=== PATIENT | female | born 1990 | race Caucasian/White ===

== ENCOUNTER → 2018-08-01 | Outpatient (CLI) | payer OTHER | END | disposition home or self-care (01) | LOC: LABWHC1 09:03 | PROVIDERS: ATTEND Surgery | DX: Z52.4 Kidney donor (principal) | CPT/HCPCS: 86900; 86901 ==

== ENCOUNTER → 2018-09-23 | Outpatient (CLI) | payer OTHER ==
[2018-09-23 09:49] LABS: Basophils % (A) 0 %; Eosinophils # (A) 0.3 k/uL (0-0.7); Eosinophils % (A) 4 %; HCT 37.6 % (34.0-46.0); HGB 12.5 gm/dL (11.4-16.0); Lymphocytes # (A) 2.1 k/uL (1.0-4.8); Lymphocytes % (A) 34 %; MCH 32.2 pg (25.0-35.0); MCHC 33.1 g/dL (31.0-37.0); MCV 97.3 fL (80.0-100.0); Mean Platelet Volume 8.9; Monocytes # (A) 0.3 k/uL (0-1.0); Monocytes % (A) 5 %; Neutrophils # (A) 3.5 k/uL (1.3-7.7); Neutrophils % (A) 56 %; Platelet Count 187 k/uL (150-450); RBC 3.87 m/uL (3.80-5.40); RDW 12.5 % (11.5-15.5); WBC 6.2 k/uL (3.8-10.6)
[2018-09-23 10:04] LABS: Partial Thromboplastin Time 25.6 sec (22.0-30.0); Prothrombin Time 9.9 sec (9.0-12.0)
[2018-09-23 10:07] LABS: Appearance,Urine Cloudy (Clear); Bilirubin,Urine Negative (Negative); Blood,Urine Moderate (Negative); Color,Urine Yellow; Glucose,Urine (UA) Negative (Negative); Ketones,Urine Negative (Negative); Leukocyte Esterase,Urine Small (Negative); Mucus,Urine Moderate /hpf; Nitrite,Urine Negative (Negative); Protein,Urine Trace (Negative); RBC,Urine 7 /hpf (0-5); Specific Gravity,Urine 1.023 (1.001-1.035); Squamous Epithelial Cell,Urine 22 /hpf (0-4); Urobilinogen,Urine <2.0 mg/dL (<2.0); WBC,Urine 5 /hpf (0-5)
--- NOTE | 2018-09-23 10:41 | XR ---
EXAMINATION TYPE: XR chest 2V DATE OF EXAM: 09/23/2018 COMPARISON: NONE HISTORY: Chest pain TECHNIQUE: Frontal and lateral views of the chest are obtained. FINDINGS: There is no focal air space opacity. No evidence for pneumothorax. No pleural effusion. The cardiac silhouette size is within normal limits. The osseous structures are grossly intact. IMPRESSION: 1. No acute cardiopulmonary process.
[2018-09-23 14:39] LABS: Creatinine 24 Hour,Urine 1162.8 mg/24hr (800.0-1800.0)
[2018-09-23 16:50] LABS: ALT 10 U/L (8-44); AST 15 U/L (13-35); Albumin/Globulin Ratio 2.59 (1.20-2.10); Alkaline Phosphatase 82 U/L (41-126); Calcium 9.1 mg/dL (8.7-10.3); Carbon Dioxide 22.5 mmol/L (21.6-31.8); Chloride 109 mmol/L (96-109); Cholesterol 145 mg/dL (0-200); GGT <15 U/L (0-38); Globulin 1.7 g/dL (2.1-3.7); Glucose 81 mg/dL (70-110); HCG,Quantitative Serum <2.0 mIU/mL; LDH 127 U/L (120-246); LDL Cholesterol,Calculated 84.2 mg/dL (0.0-131.0); Phosphorus 3.2 mg/dL (2.4-5.1); Potassium 3.8 mmol/L (3.5-5.5); Sodium 139 mmol/L (135-145); Total Bilirubin 0.7 mg/dL (0.3-1.2); Total Protein 6.1 g/dL (6.2-8.2)
[2018-09-23 18:27] LABS: Hemoglobin A1C 5.1 % (4.0-6.0)
[2018-09-23 19:05] LABS: Total Volume 24 Hour,Urine 1800 mL
[2018-09-23 19:09] LABS: Hepatitis B Core IgM Non-Reactive (Non-Reactive); Hepatitis B Surface AB- Quant 54.6 mIU/mL; Hepatitis C IgG Antibody Non-Reactive (Non-Reactive)
[2018-09-23 19:35] LABS: Creatinine,Urine Random 262.7 mg/dL
[2018-09-23 19:41] LABS: Total Protein,Urine Random 15.5 mg/dL (0.0-13.5)
[2018-09-23 19:49] LABS: HIV 1 AB Non-Reactive (Non-Reactive); HIV AB P24 Non-Reactive (Non-Reactive); HIV P24 AG Non-Reactive (Non-Reactive)
[2018-09-24 14:51] LABS: Hepatits C Virus RNA Not detected (Not detected); Hepatits C Virus RNA, Quant <12 IU/mL (<12); LOG HCV IU/mL <1.08 (<1.08)
[2018-09-24 15:52] LABS: Total Protein 24 Hour,Urine 100.8 mg/24Hr
== END | disposition home or self-care (01) ==
LOC: LABWHC1 08:29
PROVIDERS: ATTEND Surgery
DX: Z52.4 Kidney donor (principal); Z13.6 Encounter for screening for cardiovascular disorders
CPT/HCPCS: 36415; 71046; 80053; 80061; 81001; 81050; 82043; 82248; 82570; 82575; 82977; 83036; 83615; 84100; 84156; 84702; 85025; 85610; 85730; 86480; 86592; 86644; 86665; 86704; 86705; 86706; 86789; 86803; 87086; 87340; 87390; 87522; 93005